=== PATIENT | male | born 1990 | race Caucasian/White ===

== ENCOUNTER 2016-12-02 22:38 | Emergency (ER) | payer SELFPAY ==
[2016-12-02 22:46] VITALS: PULSE 66; RESP 16; TEMP 97.9; O2SAT 96
--- NOTE | 2016-12-02 23:05 | EDPHY ---
H & P Stated Complaint: pt brought to ED for med clearance and is not on a hold Time Seen by Provider: 12/02/16 22:48 HPI/ROS: HPI The patient presents brought in by police initially for med clearance because of bizarre behavior. He was found on the [place] [address], running around naked. He is no longer in police custody. He can explain that he was on the [place], but denies any complaints. He said he has been smoking quite a bit of marijuana tonight. He denies any other drug use. He denies any injuries. He says if he is discharged from the emergency room, he will go to a motel room. REVIEW OF SYSTEMS Constitutional: No fever, no chills. Eyes: No discharge. ENT: No sore throat. Cardiovascular: No chest pain, no palpitations. Respiratory: No cough, no shortness of breath. Gastrointestinal: No abdominal pain, no vomiting. Genitourinary: No hematuria. Musculoskeletal: No back pain. Skin: No rashes. Neurological: No headache. PMHx: Denies Soc Hx: Has lived in [place] for the last 4 and half years, went to [facility], now homeless, marijuana use PHYSICAL General Appearance: Alert, poor hygiene somewhat disheveled, no acute distress Eyes: Pupils equal and round no pallor or injection ENT, Mouth: Mucous membranes moist Respiratory: There are no retractions, lungs are clear to auscultation Cardiovascular: Regular rate and rhythm Gastrointestinal: Abdomen is soft and non-tender, no masses, bowel sounds normal Neurological: A&O, moves all extremities Skin: Warm and dry, no rashes Musculoskeletal: Neck is supple non tender Extremities: symmetrical, full range of motion Psychiatric: Patient is oriented X 3, there is no agitation, he is slow to respond to my questions and seems somewhat paranoid Source: Patient, Police - Personal History Current Tetanus Diphtheria and Acellular Pertussis (TDAP): Yes - Medical/Surgical History Hx Asthma: No Hx Chronic Respiratory Disease: No Hx Diabetes: No Hx Cardiac Disease: No Hx Renal Disease: No Hx Cirrhosis: No Hx Alcoholism: No Hx HIV/AIDS: No Hx Splenectomy or Spleen Trauma: No Other PMH: denies - Social History Smoking Status: Current every day smoker Constitutional: Initial Vital Signs Temperature (C) 36.6 C 12/02/16 22:44 Heart Rate 66 12/02/16 22:44 Respiratory Rate 16 12/02/16 22:44 Blood Pressure 131/74 H 12/02/16 22:44 O2 Sat (%) 96 12/02/16 22:44 O2 Delivery Mode Room Air Allergies/Adverse Reactions: No Known Allergies Allergy (Unverified 12/02/16 22:44) Home Medications: Medication Instructions Recorded NK [No Known Home Meds] 12/02/16 Medical Decision Making ED Course/Re-evaluation: The patient was observed in the emergency room. He had no erratic behaviors. He ate a sandwich. U tox was checked and was negative. He continued to deny any complaints. He said he would like to be discharged. Says he will go either to [place] or to a motel. I have offered him mental health evaluation, however he says he feels okay. He continues to deny SI, HI, auditory or visual hallucinations. I suspect he is either intoxicated from marijuana use verses as he has chronic psychiatric disease. However, there is are no grounds for an M1 hold at this point. He will be discharged with follow-up information at [facility]. Differential Diagnosis: This is a 26-year-old male with no significant past medical history who presents brought in by police after found running naked in public. He says he has been smoking a lot of marijuana tonight, though denies any other complaints. On exam, he is alert and oriented, somewhat disheveled, and has poor eye contact, slow to respond to my questions though answers questions appropriately. He seems somewhat paranoid. However, he has a plan for discharge and would like to go to a motel. He denies any SI or HI. He denies any past psychiatric history. Differential diagnosis includes marijuana intoxication, polysubstance abuse, mental health problem with paranoia. - Data Points Laboratory Results: 12/02/16 23:29 Urine Opiates Screen NEGATIVE (NEGATIVE) Urine Barbiturates NEGATIVE (NEGATIVE) Ur Phencyclidine Scrn NEGATIVE (NEGATIVE) Ur Amphetamine Screen NEGATIVE (NEGATIVE) U Benzodiazepines Scrn NEGATIVE (NEGATIVE) Urine Cocaine Screen NEGATIVE (NEGATIVE) U Marijuana (THC) Screen NEGATIVE (NEGATIVE) Departure - Departure Disposition: Home, Routine, Self-Care Clinical Impression: Bizarre behavior Condition: Good Instructions: [facility] Additional Instructions: Please return to the emergency room for any concerns. Referrals: [facility],. [Clinic] - As per Instructions
[2016-12-03 01:26] VITALS: BP 118/66
== END 2016-12-03 01:26 | disposition home or self-care (01) ==
DX: R46.1 Bizarre personal appearance (principal)
CPT/HCPCS: 80305

== ENCOUNTER 2016-12-03 15:15 | Emergency (ER) | payer SELFPAY ==
--- NOTE | 2016-12-03 15:44 | EDPHY ---
H & P HPI/ROS: CHIEF COMPLAINT: Altered mental status HISTORY OF PRESENT ILLNESS: The patient is a 26-year-old male brought in by EMS for altered mental status. Per report the patient was found leaving and supple by police. They called EMS. Although the patient is alert he is not answering many questions. They are history is limited. The patient did state he was in the emergency department yesterday. Their initial glucose was 52. He took oral glucose and increased to 67. On my evaluation the patient has no specific complaints but has very limited answers to questions. REVIEW OF SYSTEMS: My review systems is limited due the patient's poor response to questioning. Past Medical/Surgical History: Denies Social history: The patient lives in [place]. He is homeless. Positive marijuana use. Denies drinking. Smoking Status: Current every day smoker Physical Exam: Vitals noted GENERAL: poor hygiene. Disheveled. No acute distress. Eyes open and sitting up in bed. HEENT: Eyes normal to inspection, PERRLA, normal pharynx, no signs of dehydration. NECK: No thyromegaly, no lymphadenopathy, supple. RESPIRATORY: Clear to auscultation bilaterally, no rales, rhonchi or wheezing. CVS: Regular rate and rhythm, no rubs, murmurs, or gallops. ABDOMEN: Soft, nontender, nondistended, no organomegaly. BACK: Normal to inspection, no CVA tenderness. SKIN: Multiple tattoos. Normal color, no rash, warm, dry. No pallor. EXTREMITIES: No pedal edema, no calf tenderness, no Homans sign or cords, no joint swelling. NEURO/PSYCH: Alert and oriented, normal mood and affect, normal motor sensory exam. Constitutional: Initial Vital Signs Temperature (C) 36.7 C 12/03/16 15:25 Heart Rate 69 12/03/16 15:25 Respiratory Rate 16 12/03/16 15:25 Blood Pressure 101/65 12/03/16 15:25 O2 Sat (%) 100 12/03/16 15:25 O2 Delivery Mode Room Air Allergies/Adverse Reactions: No Known Allergies Allergy (Unverified 12/02/16 22:44) Home Medications: Medication Instructions Recorded NK [No Known Home Meds] 12/02/16 Medical Decision Making ED Course/Re-evaluation: In the emergency department I discussed possible etiologies with the patient. I met EMS on arrival. I took report from the indian nanny. I reviewed the patient's laboratory studies. His chemistry panel is unremarkable. Glucose was 90. His CBC had a mildly elevated white count of 12. Patient's alcohol was less than 10. I rechecked the patient on numerous occasions. He stated he was hungry. He ate 2 sandwiches had multiple snacks while here. 17 10: Patient has no complaints at this time. He states "I was outside for a long time." He denies drug use. He has no focal findings on exam. He felt comfortable with discharge. Differential Diagnosis: My differential includes but is not limited to hypoglycemia, dehydration, drug use, alcohol abuse, CVA, electrolyte abnormality, sugar abnormality - Data Points Laboratory Results: Laboratory Results 12/03/16 15:15 12/03/16 15:15 12/03/16 12/03/16 12/03/16 16:43 15:15 15:15 WBC 12.04 10^3/uL H 10^3/uL (3.80-9.50) RBC 5.56 10^6/uL 10^6/uL (4.40-6.38) Hgb 16.2 g/dL g/dL (13.7-17.5) Hct 47.3 % % (40.0-51.0) MCV 85.1 fL fL (81.5-99.8) MCH 29.1 pg pg (27.9-34.1) MCHC 34.2 g/dL g/dL (32.4-36.7) RDW 12.9 % % (11.5-15.2) Plt Count 307 10^3/uL 10^3/uL (150-400) MPV 9.1 fL fL (8.7-11.7) Neut % (Auto) 70.6 % % (39.3-74.2) Lymph % (Auto) 20.9 % % (15.0-45.0) [place] % (Auto) 6.9 % % (4.5-13.0) Eos % (Auto) 0.8 % % (0.6-7.6) Baso % (Auto) 0.5 % % (0.3-1.7) Nucleat RBC Rel Count 0.0 % % (0.0-0.2) Absolute Neuts (auto) 8.49 10^3/uL H 10^3/uL (1.70-6.50) Absolute Lymphs (auto) 2.52 10^3/uL 10^3/uL (1.00-3.00) Absolute Monos (auto) 0.83 10^3/uL H 10^3/uL (0.30-0.80) Absolute Eos (auto) 0.10 10^3/uL 10^3/uL (0.03-0.40) Absolute Basos (auto) 0.06 10^3/uL 10^3/uL (0.02-0.10) Absolute Nucleated RBC 0.00 10^3/uL 10^3/uL (0-0.01) Immature Gran % 0.3 % % (0.0-1.1) Immature Gran # 0.04 10^3/uL 10^3/uL (0.00-0.10) Sodium 141 mEq/L mEq/L (134-144) Potassium 4.6 mEq/L mEq/L (3.5-5.2) Chloride 101 mEq/L mEq/L (97-110) Carbon Dioxide 26 mEq/l mEq/l (22-31) Anion Gap 14 mEq/L mEq/L (8-16) BUN 12 mg/dL mg/dL (7-23) Creatinine 0.7 mg/dL mg/dL (0.7-1.3) Estimated GFR > 60 Glucose 90 mg/dL mg/dL (70-100) Calcium 10.3 mg/dL mg/dL (8.5-10.4) Urine Opiates Screen NEGATIVE (NEGATIVE) Urine Barbiturates NEGATIVE (NEGATIVE) Ur Phencyclidine Scrn NEGATIVE (NEGATIVE) Ur Amphetamine Screen NEGATIVE (NEGATIVE) U Benzodiazepines Scrn NEGATIVE (NEGATIVE) Urine Cocaine Screen NEGATIVE (NEGATIVE) U Marijuana (THC) Screen NON-NEGATIVE H (NEGATIVE) Ethyl Alcohol < 10 mg/dL mg/dL (0-10) Departure - Departure Disposition: Home, Routine, Self-Care Clinical Impression: Altered mental status Qualifiers: Altered mental status type: unspecified Qualified Code(s): R41.82 - Altered mental status, unspecified Condition: Good Instructions: Altered Mental Status (ED) Additional Instructions: Return with any other concerns. Referrals: [facility],. [Clinic] - 5-7 days, call for appt.
[2016-12-03 15:56] LABS: % IMMATURE GRANULYOCYTES 0.3 % (0.0-1.1); ABSOLUTE IMMATURE GRANULOCYTES 0.04 10^3/uL (0.00-0.10); ADD DIFF? NO; ADD MORPH? NO; ADD SCAN? NO; ATYPICAL LYMPHOCYTE FLAG 20 (0-99); FRAGMENT RBC FLAG 0 (0-99); HEMATOCRIT 47.3 % (40.0-51.0); HEMOGLOBIN 16.2 g/dL (13.7-17.5); LEFT SHIFT FLG 10 (0-99); LIPEMIA HEMOLYSIS FLAG 90 (0-99); MEAN CELL HEMOGLOBIN 29.1 pg (27.9-34.1); MEAN CELL HEMOGLOBIN CONCENTR. 34.2 g/dL (32.4-36.7); MEAN CELL VOLUME 85.1 fL (81.5-99.8); MEAN PLATELET VOLUME 9.1 fL (8.7-11.7); PLATELET CLUMPS FLAG 30 (0-99); PLATELET COUNT 307 10^3/uL (150-400); RED BLOOD CELL COUNT 5.56 10^6/uL (4.40-6.38); RED CELL DISTRIBUTION WIDTH 12.9 % (11.5-15.2)
[2016-12-03 16:03] LABS: ANION GAP 14 mEq/L (8-16); CALCIUM 10.3 mg/dL (8.5-10.4); CARBON DIOXIDE 26 mEq/l (22-31); CHLORIDE 101 mEq/L (97-110); CREATININE 0.7 mg/dL (0.7-1.3); ETHANOL SERUM < 10 mg/dL (0-10); GLOMERULAR FILTRATION RATE > 60; GLUCOSE 90 mg/dL (70-100); POTASSIUM 4.6 mEq/L (3.5-5.2); SODIUM 141 mEq/L (134-144)
[2016-12-03 17:42] VITALS: BP 130/77; PULSE 70; RESP 14; TEMP 98.4; O2SAT 94
== END 2016-12-03 17:40 | disposition home or self-care (01) ==
LOC: EDUNIT#
DX: R41.82 Altered mental status, unspecified (principal); F17.200 Nicotine dependence, unspecified, uncomplicated
CPT/HCPCS: 80305; G0480